=== PATIENT | female | born 1960 | race Caucasian/White ===

== ENCOUNTER 2022-10-18 12:31 | Outpatient (CLI) | payer BC ==
[2022-10-18] MEDS ORDERED: Magnevist 469MG/ML 20 ML VIAL ONE (15:30)
== END 2022-10-18 12:32 | disposition home or self-care (01) ==
LOC: CSHMRI 12:31
PROVIDERS: ATTEND Otolaryngology Plastic Surgery within the Head & Neck
DX: H90.3 Sensorineural hearing loss, bilateral (principal); R90.82 White matter disease, unspecified
CPT/HCPCS: 70553; A9579

== ENCOUNTER 2023-01-21 09:05 | Outpatient (CLI) | payer BC | END 2023-01-21 09:06 | disposition home or self-care (01) | LOC: CSHMRI 09:05 | PROVIDERS: ATTEND Psychiatry & Neurology Neurology | DX: I63.9 Cerebral infarction, unspecified (principal) | CPT/HCPCS: 70544; 70547 ==